=== PATIENT | male | born 1950 | race Caucasian/White ===

== ENCOUNTER 2018-02-25 14:06 | Emergency (ER) | payer MEDICARE ==
[2018-02-25 16:21] LABS: ABS Basophils 0 10^3/ul (0-0.2); ABS Eosinophils 0.2 10^3/ul (0-0.6); ABS Lymphocytes 3.8 10^3/ul (1.0-4.8); ABS Monocytes 0.9 10^3/ul (0-0.8); ABS Neutrophils 2.2 10^3/ul (1.5-7.7); ABS Nucleated RBC 0 10^3/ul; Eosinophil % 3.1 % (0-6); Hematocrit 44 % (42-52); Hemoglobin 15.2 g/dl (14.0-18.0); Lymphocyte % 53.3 % (25-47); Mean Corpuscular HGB Conc 35 g/dl (31-36); Mean Corpuscular Hemoglobin 30 pg (27-31); Mean Corpuscular Volume 87 fL (80-94); Mean Platelet Volume 7.8 um3 (7.4-10.4); Nucleated Red Blood Cells % 0.3; Platelet Count 245 10^3/ul (150-450); Red Blood Count 5.06 10^6/ul (4.00-5.40); Red Cell Distribution Width 13 % (10.5-15); White Blood Count 7.2 10^3/ul (3.5-10.8)
[2018-02-25] MEDS ORDERED: NS 0.9% 1000 ML* 1,000 ML IV ONE ×2 (18:47→19:00)
--- NOTE | 2018-02-25 19:38 | ED ---
GI/ HPI - HPI Summary HPI Summary: This is néstor Carr documenting for Jon Farrell MD. This patient is a 67 y/o male presenting at [facility] with N/V/D and diaphoresis that started on the evening of 02/22/18. He blames it on spinach he ate that night, but reports he has not been eating anything unusual lately. The N/V lasted until the next morning, while his diarrhea has persisted. His describes the diarrhea as being like pudding and he had 3-4 episodes today. He denies abd cramping and blood in his diarrhea. He has been able to drink half a bottle (16.9 fl oz plastic bottle) of water since the morning of . He has also taken Pepto-Bismol and Imodium BULLDOGGER. He denies any nausea currently. 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 - History of Current Complaint Chief Complaint: EDNauseaVomitDiarrh Time Seen by Provider: 02/25/18 18:46 Stated Complaint: DIARRHEA/VOMITING Hx Obtained From: Patient Onset/Duration: Started Days Ago - evening of 02/22/18, Still Present - Diarrhea is still present. Nausea and vomiting have resolved. Timing: Lasting Days - evening of 02/22/18 Severity: Mild Current Severity: Mild Pain Intensity: 3 Associated Signs and Symptoms: Positive: Nausea - currently is not nauseated, Vomiting - has had 3-4 episodes today, Diarrhea, Diaphoresis, Other: - denies abdominal cramping Aggravating Factor(s): Nothing Alleviating Factor(s): Nothing - Additional Pertinent History Primary Care Physician: [id number] - Allergy/Home Medications Allergies/Adverse Reactions: Allergies Allergy/AdvReac Type Severity Reaction Status Date / Time No Known Allergies Allergy Verified 02/25/18 14:15 PMH/Surg Hx/FS Hx/Imm Hx Endocrine/Hematology History: Reports: Hx Diabetes, Hx Thyroid Disease - HYPOTHYROID Denies: Hx Anticoagulant Therapy, Hx Blood Disorders, Hx Blood Transfusions, Hx Bone Marrow Disease, Hx Systemic Lupus Erythematosus, Hx Sickle Cell Disease , Hx Anemia, Hx Unexplained Bleeding, Other Endocrine/Hematological Disorders Cardiovascular History: Reports: Hx Hypercholesterolemia, Hx Hypertension, Other Cardiovascular Problems/Disorders - HLD Denies: Hx Congestive Heart Failure, Hx Pacemaker/ICD Respiratory History: Reports: Hx Sleep Apnea History: Denies: Hx Renal Disease Musculoskeletal History: Reports: Hx Arthritis, Other Musculoskeletal History - restless legs Sensory History: Reports: Hx Contacts or Glasses - reading glasses, Other Sensory Impairments Denies: Hx Hearing Aid Opthamlomology History: Reports: Hx Contacts or Glasses - reading glasses, Other Sensory Impairments Neurological History: Reports: Hx CVA - x 3. Most recent in November 2015. Psychiatric History: Denies: Hx Panic Disorder - Surgical History Surgery Procedure, Year, and Place: KNEE REPLACEMENT, CARPAL TUNNEL, LEFT SHOULDER ROTATOR CUFF Hx Anesthesia Reactions: No - Immunization History Date of Tetanus Vaccine: Up to date Date of Influenza Vaccine: 2016 Infectious Disease History: No Infectious Disease History: Denies: Hx of Known/Suspected MRSA, Hx Shingles, Hx Tuberculosis, Hx Known/ Suspected VRE, Hx Known/Suspected VRSA, History Other Infectious Disease, Traveled Outside the [place] in Last 30 Days - Family History Known Family History: Positive: Diabetes, Other - Bone cancer - Social History Alcohol Use: None Hx Substance Use: No Substance Use Type: Reports: None Hx Tobacco Use: Yes Smoking Status (MU): Former Smoker Type: Cigarettes Length of Time of Smoking/Using Tobacco: 1-2 years Have You Smoked in the Last Year: No Review of Systems Positive: Skin Diaphoresis Positive: Vomiting - Vomiting 02/22/18 night into 02/23/2018 morning but no vomiting currently, Diarrhea, Nausea - Nausea 02/22/18 night into 02/23/2018 morning but no nausea currently, Other - Denies blood in diarrhea . Negative: Abdominal Pain Positive: Weakness All Other Systems Reviewed And Are Negative: Yes Physical Exam - Summary Physical Exam Summary: VITAL SIGNS: Reviewed. GENERAL: Patient is a well-developed and nourished MALE who is lying comfortable in the stretcher. Patient is not in any acute respiratory distress. HEAD AND FACE: No signs of trauma. No ecchymosis, hematomas or skull depressions. No sinus tenderness. EYES: PERRLA, EOMI x 2, No injected conjunctiva, no nystagmus. EARS: Hearing grossly intact. Ear canals and tympanic membranes are within normal limits. MOUTH: Oropharynx within normal limits. NECK: Supple, trachea is midline, no adenopathy, no JVD, no carotid bruit, no c- spine tenderness, neck with full ROM. CHEST: Symmetric, no tenderness at palpation LUNGS: Clear to auscultation bilaterally. No wheezing or crackles. CVS: Regular rate and rhythm, S1 and S2 present, no murmurs or gallops appreciated. ABDOMEN: Soft, non-tender. No signs of distention. No rebound no guarding, and no masses palpated. Bowel sounds are normal. EXTREMITIES: FROM in all major joints, no edema, no cyanosis or clubbing. Chronic R side weakness. NEURO: Alert and oriented x 3. Chronic right side weakness secondary of CVA. Speech is normal and follows commands. SKIN: Dry and warm Triage Information Reviewed: Yes Vital Signs On Initial Exam: Initial Vitals Temp Pulse Resp BP Pulse Ox 98.1 F 87 20 110/67 96 02/25/18 14:10 02/25/18 14:10 02/25/18 14:10 02/25/18 14:10 02/25/18 14:10 Vital Signs Reviewed: Yes Diagnostics - Vital Signs Vital Signs Temp Pulse Resp BP Pulse Ox 02/25/18 17:50 97.8 F 78 18 117/68 100 02/25/18 16:00 97.8 F 80 19 98/72 98 02/25/18 14:10 98.1 F 87 20 110/67 96 - Laboratory Lab Results: Lab Results 02/25/18 02/25/18 02/25/18 Range/Units 16:05 16:05 16:05 WBC 7.2 (3.5-10.8) 10^3/ul RBC 5.06 (4.00-5.40) 10^6/ul Hgb 15.2 (14.0-18.0) g/dl Hct 44 (42-52) % MCV 87 (80-94) fL MCH 30 (27-31) pg MCHC 35 (31-36) g/dl RDW 13 (10.5-15) % Plt Count 245 (150-450) 10^3/ul MPV 7.8 (7.4-10.4) um3 Neut % (Auto) 31.0 L (38-83) % Lymph % (Auto) 53.3 H (25-47) % [place] % (Auto) 12.0 H (0-7) % Eos % (Auto) 3.1 (0-6) % Baso % (Auto) 0.6 (0-2) % Absolute Neuts (auto) 2.2 (1.5-7.7) 10^3/ul Absolute Lymphs (auto) 3.8 (1.0-4.8) 10^3/ul Absolute Monos (auto) 0.9 H (0-0.8) 10^3/ul Absolute Eos (auto) 0.2 (0-0.6) 10^3/ul Absolute Basos (auto) 0 (0-0.2) 10^3/ul Absolute Nucleated RBC 0 10^3/ul Nucleated RBC % 0.3 Sodium 140 (135-145) mmol/L Potassium 3.9 (3.5-5.0) mmol/L Chloride 103 (101-111) mmol/L Carbon Dioxide 25 (22-32) mmol/L Anion Gap 12 H (2-11) mmol/L BUN 35 H (6-24) mg/dL Creatinine 1.24 H (0.67-1.17) mg/dL Est GFR ( Amer) 70.1 (>60) Est GFR (Non-Af Amer) 58.0 (>60) BUN/Creatinine Ratio 28.2 H (8-20) Glucose 107 H (70-100) mg/dL Lactic Acid 1.8 (0.5-2.0) mmol/L Calcium 10.0 (8.6-10.3) mg/dL Total Bilirubin 0.40 (0.2-1.0) mg/dL AST 40 H (13-39) U/L ALT 47 (7-52) U/L Alkaline Phosphatase 57 (34-104) U/L C-Reactive Protein 9.67 H (<8.01) mg/L Total Protein 7.2 (6.4-8.9) g/dL Albumin 4.5 (3.2-5.2) g/dL Globulin 2.7 (2-4) g/dL Albumin/Globulin Ratio 1.7 (1-3) Lipase 38 (11.0-82.0) U/L Result Diagrams: 02/25/18 16:05 02/25/18 16:05 Lab Statement: Any lab studies that have been ordered have been reviewed, and results considered in the medical decision making process. GIGU Course/Dx - Course Assessment/Plan: Patient is a 67-year-old male who presents to the emergency department with with a chief complaint of having nausea vomiting and diarrhea since last Sunday. The patient states that he ate some broccoli and soon after he developed the above symptoms. Test results without any significant abnormality except for BUNs of 35 and creatinine 1.24. CRP is 9.67. In the ED course the patient was given IV fluids. We observed the patient for a couple hours, the patient was hydrated, he hasnt no nausea any longer and he has not been able to provide and stool sample. The patient reports no abdominal pain but has no other complaints. The patient was able to tolerate by mouth. Therefore at this time the patient will be discharged home with follow-up with primary care physician. Patient was instructed to follow with a brat diet. And if she develops any abdominal pain, nausea vomiting she should return to the emergency department for further workup and management. Patient understands and agrees. - Diagnoses Differential Diagnoses - Male: Diarrhea Provider Diagnoses: Diarrhea Discharge - Sign-Out/Discharge Documenting (check all that apply): Patient Departure - Discharge Plan Condition: Stable Disposition: HOME Patient Education Materials: Acute Diarrhea (ED) Referrals: Andrzej Albert MD [Primary Care Provider] - 3 Days Additional Instructions: Return to the ED for any new or worsening symptoms
[2018-02-25 19:42] LABS: Urine Appearance Clear; Urine Blood Negative (Negative); Urine Color Yellow; Urine Ketones Negative (Negative); Urine Protein Negative (Negative); Urine Urobilinogen Negative (Negative)
[2018-02-25 21:36] VITALS: BP 121/63
== END 2018-02-25 21:35 | disposition home or self-care (01) ==
LOC: ED 14:06
DX: R19.7 Diarrhea, unspecified (principal); R11.2 Nausea with vomiting, unspecified; I69.354 Hemiplegia and hemiparesis following cerebral infarction affecting left non-dominant side; I69.351 Hemiplegia and hemiparesis following cerebral infarction affecting right dominant side; Z99.3 Dependence on wheelchair; Z87.891 Personal history of nicotine dependence
CPT/HCPCS: 36415; 80053; 81003; 83605; 83690; 85025; 86140; 96360; 99282